=== PATIENT | female | born 1990 | race Two or more races ===

== ENCOUNTER 2020-07-28 09:14 | Emergency (ER) | payer BC ==
[~2020-07-28] VITALS: Ht 165.1 cm; Wt 73.0 kg
[2020-07-28] MEDS ORDERED: ACETAMINOPHEN 325MG TABLET PO ONE (10:00)
[2020-07-28 11:21] VITALS: BP 130/80
== END 2020-07-28 11:21 | disposition home or self-care (01) ==
LOC: ER 09:14
DX: S09.90XA Unspecified injury of head, initial encounter (principal); Z98.890 Other specified postprocedural states; W18.39XA Other fall on same level, initial encounter; Y93.02 Activity, running; Y92.89 Other specified places as the place of occurrence of the external cause; Y99.8 Other external cause status
CPT/HCPCS: 81025; 99284